=== PATIENT | female | born 1990 | race Caucasian/White ===

== ENCOUNTER 2018-01-18 10:37 | Emergency (ER) | payer SELFPAY ==
[2018-01-18] MEDS ORDERED: KETOROLAC TROMETHAMINE 60 MG/2 ML SDV IM ONE (10:53)
[2018-01-18] MEDS ORDERED: ONDANSETRON 4 MG TAB.RAPDIS SL ONE (10:53)
--- NOTE | 2018-01-18 10:54 | ER Document Report ---
ED Medical Screen (RME) - General Chief Complaint: Flank Pain Stated Complaint: STOMACH/BACK PAIN Time Seen by Provider: 01/18/18 10:42 Mode of Arrival: Ambulatory Information source: POA - Power of [employer] TRAVEL OUTSIDE OF THE [place] IN LAST 30 DAYS: No - HPI Patient complains to provider of: Left flank pain Onset: Yesterday Associated Symptoms: Dysuria, Nausea Exacerbated by: Denies Relieved by: Denies Similar symptoms previously: No Recently seen / treated by doctor: No Notes: 01/18/18 10:54 Patient is a 27-year-old female presenting to the emergency room complaining of left-sided flank pain that started yesterday evening and worsened this morning, she reports associated dysuria as well as nausea, temperature is 99.0 in triage area, patient denies fevers, no vomiting, no diarrhea - Related Data Allergies/Adverse Reactions: diphenhydramine HCl [From Benadryl] Allergy (Verified 01/18/18 10:38) Physical Exam - Vital signs Vitals: Temp Pulse Resp BP Pulse Ox 97.4 F 113 H 16 121/68 99 01/18/18 10:42 01/18/18 10:42 01/18/18 10:42 01/18/18 10:42 01/18/18 10:42 Course - Vital Signs Vital signs: Temp Pulse Resp BP Pulse Ox 97.4 F 113 H 16 121/68 99 01/18/18 10:42 01/18/18 10:42 01/18/18 10:42 01/18/18 10:42 01/18/18 10:42
[2018-01-18 11:47] LABS: ABSOLUTE BASOPHILS # (AUTO) 0.1 10^3/uL (0.0-0.2); ABSOLUTE EOSINOPHILS # (AUTO) 0.1 10^3/uL (0.0-0.6); ABSOLUTE LYMPHOCYTES (AUTO) 1.9 10^3/uL (0.5-4.7); ABSOLUTE MONOCYTES (AUTO) 0.7 10^3/uL (0.1-1.4); ABSOLUTE NEUT (AUTO) 9.9 10^3/uL (1.7-8.2); BASOPHILS % (AUTO) 0.7 % (0-2); EOSINOPHILS % (AUTO) 0.6 % (0-6); HEMATOCRIT 42.3 % (36.0-47.0); HEMOGLOBIN 14.3 g/dL (12.0-15.5); LYMPHOCYTES % (AUTO) 15.3 % (13-45); MEAN CORPUSCULAR HEMOGLOBIN 28.3 pg (27.0-33.4); MEAN CORPUSCULAR HGB CONC 33.9 g/dL (32.0-36.0); MEAN CORPUSCULAR VOLUME 83 fl (80-97); MONOCYTES % (AUTO) 5.2 % (3-13); PLATELET COUNT 361 10^3/uL (150-450); RED BLOOD COUNT 5.06 10^6/uL (3.72-5.28); RED CELL DISTRIBUTION WIDTH 13.3 % (11.5-14.0); SEGMENTED NEUTROPHILS % (AUTO) 78.2 % (42-78); TOTAL CELLS COUNTED % (AUTO) 100 %; WHITE BLOOD COUNT 12.7 10^3/uL (4.0-10.5)
[2018-01-18 11:56] LABS: APPEARANCE,URINE CLEAR; BILIRUBIN,URINE NEGATIVE (NEGATIVE); COLOR,URINE STRAW; GLUCOSE, URINE NEGATIVE (NEGATIVE); KETONES,URINE NEGATIVE (NEGATIVE); LEUKOCYTE ESTERASE,URINE LARGE (NEGATIVE); NITRITE,URINE NEGATIVE (NEGATIVE); PROTEIN,URINE NEGATIVE (NEGATIVE); URINE SPECIFIC GRAVITY 1.004; UROBILINOGEN,URINE NEGATIVE mg/dL (<2.0)
[2018-01-18 12:10] LABS: ALANINE AMINOTRANSFERASE 23 U/L (9-52); ALBUMIN 4.9 g/dL (3.5-5.0); ALKALINE PHOSPHATASE 78 U/L (38-126); ANION GAP 14 (5-19); ASPARTATE AMINO TRANSFERASE 18 U/L (14-36); BILIRUBIN,DIRECT 0.3 mg/dL (0.0-0.4); BILIRUBIN,TOTAL 0.5 mg/dL (0.2-1.3); BLOOD UREA NITROGEN 12 mg/dL (7-20); CARBON DIOXIDE 27 mmol/L (22-30); CHLORIDE 104 mmol/L (98-107); GLUCOSE 71 mg/dL (75-110); POTASSIUM 4.6 mmol/L (3.6-5.0); SODIUM 144.9 mmol/L (137-145); TOTAL PROTEIN 8.6 g/dL (6.3-8.2)
[2018-01-18] MEDS ORDERED: CEFTRIAXONE INJ 1000 MG VIAL IM ONE (12:52)
[2018-01-18] MEDS ORDERED: LIDOCAINE 1% INJ-PF (10 MG/ML) 30 ML SDV INJ ONE (12:52)
--- NOTE | 2018-01-18 13:32 | ER Document Report ---
ED GI/ - General Chief Complaint: Flank Pain Stated Complaint: STOMACH/BACK PAIN Time Seen by Provider: 01/18/18 10:42 Mode of Arrival: Ambulatory Information source: Patient Notes: Patient presents with a four-day history of left flank pain dysuria with nausea. Patient reports temperature of 99 at home. Patient reports UTI 6 weeks ago. But states that the symptoms did improve. TRAVEL OUTSIDE OF THE [place] IN LAST 30 DAYS: No - HPI Patient complains to provider of: Flank pain. No: Vomiting Onset: Other - 4 days Timing/Duration: Persistent Quality of pain: Achy Pain Level: 3 Location: Left flank Vaginal bleeding (Compared to normal period): None Menstrual period history: denies: Associated symptoms: Dysuria, Nausea. 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 denies: Fever EENT: No symptoms reported Cardiovascular: No symptoms reported. denies: Chest pain Respiratory: No symptoms reported. denies: Cough, Short of breath Gastrointestinal: Abdominal pain - Left lateral side, Nausea. denies: Diarrhea , Vomiting Genitourinary: Dysuria, Flank pain. denies: Burning Female Genitourinary: No symptoms reported. denies: , Vaginal discharge , Vaginal bleeding Musculoskeletal: Back pain Skin: No symptoms reported Hematologic/Lymphatic: No symptoms reported Neurological/Psychological: No symptoms reported Physical Exam - Vital signs Vitals: Temp Pulse Resp BP Pulse Ox 97.4 F 113 H 16 121/68 99 01/18/18 10:42 01/18/18 10:42 01/18/18 10:42 01/18/18 10:42 01/18/18 10:42 - General General appearance: Appears well, Alert In distress: None - HEENT Head: Normocephalic, Atraumatic Eyes: Normal Conjunctiva: Normal Nasal: Normal Mouth/Lips: Normal Neck: Normal, Supple. No: Lymphadenopathy - Respiratory Respiratory status: No respiratory distress Chest status: Nontender Breath sounds: Normal. No: Rales, Rhonchi, Stridor, Wheezing Chest palpation: Normal - Cardiovascular Rhythm: Regular Heart sounds: S1 appreciated, S2 appreciated Murmur: No - Abdominal Inspection: Normal Distension: No distension Bowel sounds: Normal Tenderness: Nontender - Back Back: CVA tenderness - left - Extremities General upper extremity: Normal inspection, Normal strength General lower extremity: Normal inspection, Normal strength - Neurological Neuro grossly intact: Yes Cognition: Normal [place] Coma Scale Eye Opening: Spontaneous [place] Coma Scale Verbal: Oriented [place] Coma Scale Motor: Obeys Commands [place] Coma Scale Total: 15 - Psychological Associated symptoms: Normal affect, Normal mood - Skin Skin Temperature: Warm Skin Moisture: Dry Skin Color: Normal Course - Re-evaluation Re-evalutation: 01/18/18 14:48 Reviewed ultrasound report. No concern for obstructive uropathy or pyelonephritis. Good return precautions given. Patient nontoxic in appearance. - Vital Signs Vital signs: Temp Pulse Resp BP Pulse Ox 97.7 F 72 16 98/63 L 100 01/18/18 15:00 01/18/18 15:00 01/18/18 15:00 01/18/18 15:00 01/18/18 15:00 - Laboratory Result Diagrams: 01/18/18 11:20 01/18/18 11:20 Laboratory results interpreted by me: 01/18/18 01/18/18 01/18/18 11:06 11:20 11:20 WBC 12.7 H Seg Neutrophils % 78.2 H Absolute Neutrophils 9.9 H Glucose 71 L Total Protein 8.6 H Urine Blood LARGE H Ur Leukocyte Esterase LARGE H 01/18/18 14:47 Labs- Entire Visit 01/18/18 01/18/18 01/18/18 11:06 11:20 11:20 WBC 12.7 H RBC 5.06 Hgb 14.3 Hct 42.3 MCV 83 MCH 28.3 MCHC 33.9 RDW 13.3 Plt Count 361 Seg Neutrophils % 78.2 H Lymphocytes % 15.3 Monocytes % 5.2 Eosinophils % 0.6 Basophils % 0.7 Absolute Neutrophils 9.9 H Absolute Lymphocytes 1.9 Absolute Monocytes 0.7 Absolute Eosinophils 0.1 Absolute Basophils 0.1 Sodium 144.9 Potassium 4.6 Chloride 104 Carbon Dioxide 27 Anion Gap 14 BUN 12 Creatinine 0.70 Est GFR ( Amer) > 60 Est GFR (Non-Af Amer) > 60 Glucose 71 L Calcium 10.0 Total Bilirubin 0.5 Direct Bilirubin 0.3 Neonat Total Bilirubin Not Reportable Neonat Direct Bilirubin Not Reportable Neonat Indirect Bili Not Reportable AST 18 ALT 23 Alkaline Phosphatase 78 Total Protein 8.6 H Albumin 4.9 Lipase 74.0 Urine Color STRAW Urine Appearance CLEAR Urine pH 6.0 Ur Specific Hydes 1.004 Urine Protein NEGATIVE Urine Glucose (UA) NEGATIVE Urine Ketones NEGATIVE Urine Blood LARGE H Urine Nitrite NEGATIVE Urine Bilirubin NEGATIVE Urine Urobilinogen NEGATIVE Ur Leukocyte Esterase LARGE H Urine WBC (Auto) 51 Urine RBC (Auto) 6 Urine Bacteria (Auto) 3+ Squamous Epi Cells Auto <1 Urine Yeast (Budding) PRESENT Urine Ascorbic Acid NEGATIVE Urine HCG, Qual NEGATIVE - Diagnostic Test Radiology reviewed: Reports reviewed Discharge - Discharge Clinical Impression: Nausea UTI (urinary tract infection) Qualifiers: Urinary tract infection type: site unspecified Hematuria presence: with hematuria Qualified Code(s): N39.0 - Urinary tract infection, site not specified Condition: Stable Disposition: HOME, SELF-CARE Instructions: Cephalexin ([facility]), Urinary Anesthetic Agent ([facility]), Urinary Tract Infection ([facility]) Additional Instructions: Return immediately for any new or worsening symptoms Followup with your primary care provider, call tomorrow to make a followup appointment Prescriptions: Cephalexin Monohydrate [Keflex 500 mg Capsule] 500 mg PO Q6H 7 Days capsule Ondansetron HCl [Zofran 4 mg Tablet] 1 - 2 tab PO Q6 PRN #15 tablet PRN Reason: Phenazopyridine HCl [Pyridium 200 mg Tablet] 200 mg PO TID #15 tablet Forms: Smoking Cessation Education, Return to Work Referrals: [facility] [Provider Group] - Follow up as needed
--- NOTE | 2018-01-18 14:32 | RADIOLOGY REPORT (SQ) ---
EXAM DESCRIPTION: [employer] COMPLETED DATE/TIME: 01/18/2018 2:23 pm REASON FOR STUDY: left flank/side pain, uti COMPARISON: None. TECHNIQUE: Dynamic and static grayscale images acquired of the kidneys and bladder and recorded on P ACS. Additional selected color Doppler and spectral images recorded. LIMITATIONS: None. FINDINGS: RIGHT KIDNEY: Normal size. Normal echogenicity. No solid or suspicious masses. No h ydronephrosis. No calcifications. LEFT KIDNEY: Normal size. Normal echogenicity. No solid or suspicious masses. No hydronephrosi s. No calcifications. BLADDER: Poorly distended. No masses. OTHER FINDINGS: No other significant finding. IMPRESSION: NORMAL RENAL AND BLADDER ULTRASOUND. TECHNICAL DOCUMENTATION: JOB ID: [id number] [employer]- All Rights Reserved Reading location - IP/workstation name: [email or web address]
[2018-01-18 15:10] VITALS: BP 98/63
== END 2018-01-18 15:30 | disposition home or self-care (01) ==
LOC: ER 10:37
DX: N39.0 Urinary tract infection, site not specified (principal); R11.0 Nausea; R10.9 Unspecified abdominal pain; M54.9 Dorsalgia, unspecified; F17.200 Nicotine dependence, unspecified, uncomplicated
CPT/HCPCS: 99284; 96372; 36415; 87086; 83690; 85025; 81025; 87088; 80053; 81001; 87186; 76775; J1885; S0119; J3490; J0696